=== PATIENT | female | born 1950 | race Caucasian/White ===

== ENCOUNTER → 2018-09-05 | Outpatient (CLI) | payer MEDICARE ==
[~2018-09-05] MED LIST: AMLO5 PO; ATOR10 PO; CAL-CITRATE PL1 EACH PO; ERGO400 PO; FISH OIL 1,001000 MG PO; HYDSUL200 PO; Hair, Skin & N1 EACH PO; IRON PO; LEVSOD50 PO; LEVSOD75 PO; LOSARTAN POTAS100 MG PO; PANT40 PO; Synthroid137 MCG PO
[2018-09-05 17:51] LABS: BASOPHILS ABSOLUTE AUTO 0.05 K/mm3 (0.00-0.23); BASOPHILS PERCENT AUTO 0 % (0-2); EOSINOPHILS PERCENT AUTO 0 % (0-6); Hematocrit 39.9 % (33.0-51.0); Hemoglobin 13.4 g/dL (11.5-16.0); IMMATURE GRAN ABSOLUTE AUTO 0.06 K/mm3 (0.00-0.10); IMMATURE GRAN PERCENT AUTO 0 % (0-1); LYMPHOCYTES ABSOLUTE AUTO 1.06 K/mm3 (0.84-5.20); LYMPHOCYTES PERCENT AUTO 8 % (21-46); MONOCYTES ABSOLUTE AUTO 1.33 K/mm3 (0.16-1.47); MONOCYTES PERCENT AUTO 10 % (4-13); Mean Corpuscular HGB 29.1 pg (26.0-34.0); Mean Corpuscular HGB Conc 33.6 g/dL (31.5-36.5); Mean Corpuscular Volume 87 fL (80-100); Mean Platelet Volume 11.1 fL (9.1-12.4); NEUTROPHILS ABSOLUTE AUTO 10.94 K/mm3 (1.96-9.15); NEUTROPHILS PERCENT AUTO 81 % (41-73); Platelet Count 220 K/mm3 (150-400); RDW Coefficient Variation 14.2 % (11.7-14.2); RDW Standard Deviation 44.8 fL (35.1-46.3); Red Blood Cell Count 4.61 M/mm3 (3.80-5.20); White Blood Cell Count 13.44 K/mm3 (4.00-11.30)
[2018-09-05 18:07] LABS: Alanine Aminotransfer (ALT/SGP 18 U/L (12-78); Albumin, Blood 2.7 g/dL (3.4-5.0); Albumin/Globulin Ratio 0.6 (0.8-1.8); Alk Phos 85 U/L (40-126); Anion Gap 9 mmol/L (6-16); Aspartate Aminotrans (AST/SGOT 15 U/L (12-37); Bilirubin, Total 0.6 mg/dL (0.1-1.0); Blood Urea Nitrogen 9 mg/dL (8-24); Bun/Creatinine Ratio 11.4 (12.0-20.0); CO2, Blood 26 mmol/L (21-32); Calcium, Blood 8.7 mg/dL (8.5-10.1); Chloride, Blood 96 mmol/L (98-108); Creatinine, Blood 0.79 mg/dL (0.40-1.00); Globulin, Blood 4.7 g/dL (2.2-4.0); Glomerular Filtration Rate >60 (60-); Glucose, Blood 144 mg/dL (70-99); Sodium, Blood 131 mmol/L (136-145); Total Protein, Blood 7.4 g/dL (6.4-8.2)
== END | disposition home or self-care (01) ==
LOC: LAB EV 17:43 → LAB SHORT 17:43
PROVIDERS: Physician Assistant
DX: R11.0 Nausea (principal); R73.9 Hyperglycemia, unspecified
CPT/HCPCS: 80053; 83036; 83690; 85025

== ENCOUNTER → 2018-10-20 | Outpatient (CLI) | payer MEDICARE ==
[2018-10-21 09:20] LABS: U Amphetamine Screen Not Detected; U Barbituate Screen Not Detected; U Benzodiazapine Screen Not Detected; U Buprenorphine Screen Not Detected; U Cannabinoids Screen Not Detected; U Cocaine Screen Not Detected; U Methadone Screen Not Detected; U Methamphetamine Screen Not Detected; U Opiates Screen DETECTED; U Oxycodone Screen Not Detected; U Phencyclidine Screen Not Detected; U Propoxyphene Screen Not Detected
== END | disposition home or self-care (01) ==
LOC: LAB 17:44 → LAB SHORT 17:44
PROVIDERS: Family Medicine
DX: G89.29 Other chronic pain (principal); Z79.899 Other long term (current) drug therapy
CPT/HCPCS: G0480

== ENCOUNTER 2019-02-04 09:15 | Day surgery (SDC) | payer MEDICARE ==
[~2019-02-04] VITALS: Ht 172.7 cm; Wt 100.9 kg
== END 2019-02-04 11:38 | disposition home or self-care (01) ==
LOC: ORSCSDS 09:15
PROVIDERS: Internal Medicine Gastroenterology
PROC: 0DBN8ZX Excision of Sigmoid Colon, Via Natural or Artificial Opening Endoscopic, Diagnostic (ICD-10-PCS; principal; 2019-02-04 10:30)
PROC: 0DBP8ZX Excision of Rectum, Via Natural or Artificial Opening Endoscopic, Diagnostic (ICD-10-PCS; principal; 2019-02-04 10:30)
PROC: 0DBM8ZX Excision of Descending Colon, Via Natural or Artificial Opening Endoscopic, Diagnostic (ICD-10-PCS; principal; 2019-02-04 10:30)
DX: Z12.11 Encounter for screening for malignant neoplasm of colon (principal); Z85.038 Personal history of other malignant neoplasm of large intestine; K63.5 Polyp of colon; K62.1 Rectal polyp; K64.8 Other hemorrhoids; K57.30 Diverticulosis of large intestine without perforation or abscess without bleeding; E11.9 Type 2 diabetes mellitus without complications; I10 Essential (primary) hypertension; D64.9 Anemia, unspecified; K21.9 Gastro-esophageal reflux disease without esophagitis; E03.9 Hypothyroidism, unspecified; E66.01 Morbid (severe) obesity due to excess calories; Z68.36 Body mass index [BMI] 36.0-36.9, adult; Z79.899 Other long term (current) drug therapy
CPT/HCPCS: 88305; J2704; J7120

== ENCOUNTER → 2020-02-24 | Outpatient (CLI) | payer MEDICARE ==
[~2020-02-24] MED LIST changes: +HYDACE10B
== END | disposition home or self-care (01) ==
LOC: LAB SHORT 13:07 → LAB EV 13:07
DX: N39.0 Urinary tract infection, site not specified (principal)
CPT/HCPCS: 87086

== ENCOUNTER → 2020-11-21 | Outpatient (CLI) | payer MEDICARE | END | disposition home or self-care (01) | LOC: LAB SHORT 18:55 → LAB 18:55 | DX: N39.0 Urinary tract infection, site not specified (principal) | CPT/HCPCS: 87077; 87086; 87186 ==

== ENCOUNTER 2021-03-16 09:06 | Emergency (ER) | payer MEDICARE ==
[~2021-03-16] VITALS: Ht 167.6 cm; Wt 99.8 kg
[2021-03-16] MEDS ORDERED: IRBESARTAN300 M3 PO (09:15)
[2021-03-16] MEDS ORDERED: OXYC5 PO (10:50)
== END 2021-03-16 10:59 | disposition home or self-care (01) ==
LOC: ER 09:06
DX: S22.32XA Fracture of one rib, left side, initial encounter for closed fracture (principal); S00.83XA Contusion of other part of head, initial encounter; S40.022D Contusion of left upper arm, subsequent encounter; S90.32XD Contusion of left foot, subsequent encounter; W19.XXXA Unspecified fall, initial encounter
CPT/HCPCS: 71101; 99283-25; A9270

== ENCOUNTER 2021-06-29 09:41 | Day surgery (SDC) | payer MEDICARE ==
[~2021-06-29] VITALS: Ht 170.2 cm; Wt 233.8 kg
[~2021-06-29 09:41] MED LIST changes: +IRBESARTAN300 M3 PO; +LEVOTHYROXINE PO; +OXYC5 PO
--- NOTE | 2021-06-29 10:49 | NUR ---
06/29/21 1049 Mallika Yao CALL LIGHT WITHIN REACH. LILLIE SHEPPARD IN ROOM TO ASSIST IN PRE-OP. TETRACAIN EYE DROPS IN LEFT EYE AT 1041 RANCHO AT 1042
== END 2021-06-29 12:05 | disposition home or self-care (01) ==
LOC: ORSCSDS 09:41
PROVIDERS: Ophthalmology
PROC: 08RK3JZ Replacement of Left Lens with Synthetic Substitute, Percutaneous Approach (ICD-10-PCS; principal; 2021-06-29 11:00)
DX: H25.13 Age-related nuclear cataract, bilateral (principal); I10 Essential (primary) hypertension; K21.9 Gastro-esophageal reflux disease without esophagitis; E11.9 Type 2 diabetes mellitus without complications; E66.9 Obesity, unspecified; Z68.36 Body mass index [BMI] 36.0-36.9, adult; Z79.899 Other long term (current) drug therapy
CPT/HCPCS: J2001; J2250; J3010; J3301; J7040; V2632

== ENCOUNTER 2021-07-13 10:32 | Day surgery (SDC) | payer MEDICARE ==
[~2021-07-13] VITALS: Ht 170.2 cm; Wt 103.1 kg
--- NOTE | 2021-07-13 11:23 | NUR ---
[facility] warming gown applied. Patient states colon prep results clear. History, Chart, Medications and Allergies reviewed before start of procedure.Lungs clear T/O to Auscultation. Patient confirms NPO status and agrees with scheduled surgery. Pre-Op teaching done. Pt verbalizes understanding. Patient States Post-Procedure ride home has been arranged.
--- NOTE | 2021-07-13 12:10 | NUR ---
07/13/21 1209 Diana Arevalo History, Chart, Medications and Allergies reviewed before start of procedure. Patient confirms NPO status and agrees with scheduled surgery. 3-LEAD EKG REVIEWED WITH PHYSICIAN PRIOR TO START OF PROCEDURE. MONITOR INTACT WITH CONTINUOUS PULSE OXIMETRY AND INTERMITTENT BP. PATIENT DETERMINED TO BE ASA APPROPRIATE FOR PROPOFOL SEDATION PRIOR TO START OF PROCEDURE BY DR. KARIMI.
--- NOTE | 2021-07-13 13:15 | NUR ---
PT TO STEP. DENIES COMPLAINTS. TOLERATING JUICE.
--- NOTE | 2021-07-13 13:37 | NUR ---
WRITTEN AND VERBAL D/C INSTRUCTIONS GIVNE TO PT WITH STATED UNDERSTANDING,
== END 2021-07-13 13:50 | disposition home or self-care (01) ==
LOC: ORSCMMR 10:32
PROVIDERS: Internal Medicine Gastroenterology
PROC: 0DBN8ZX Excision of Sigmoid Colon, Via Natural or Artificial Opening Endoscopic, Diagnostic (ICD-10-PCS; principal; 2021-07-13 11:30)
PROC: 0DBM8ZX Excision of Descending Colon, Via Natural or Artificial Opening Endoscopic, Diagnostic (ICD-10-PCS; principal; 2021-07-13 11:30)
PROC: 0DBP8ZX Excision of Rectum, Via Natural or Artificial Opening Endoscopic, Diagnostic (ICD-10-PCS; principal; 2021-07-13 11:30)
DX: Z12.11 Encounter for screening for malignant neoplasm of colon (principal); Z85.038 Personal history of other malignant neoplasm of large intestine; Z86.010 Personal history of colon polyps; D12.4 Benign neoplasm of descending colon; K62.1 Rectal polyp; K57.30 Diverticulosis of large intestine without perforation or abscess without bleeding; K64.8 Other hemorrhoids; Z79.899 Other long term (current) drug therapy; I10 Essential (primary) hypertension; K21.9 Gastro-esophageal reflux disease without esophagitis; E11.9 Type 2 diabetes mellitus without complications; E66.9 Obesity, unspecified; Z68.36 Body mass index [BMI] 36.0-36.9, adult; Z85.3 Personal history of malignant neoplasm of breast
CPT/HCPCS: 88305; J2704; J7120

== ENCOUNTER 2021-07-20 07:13 | Day surgery (SDC) | payer MEDICARE ==
[~2021-07-20] VITALS: Ht 170.2 cm; Wt 105.2 kg
[2021-07-20] MEDS ORDERED: Vitamin D1000 UNI1 PO (07:41)
--- NOTE | 2021-07-20 07:51 | NUR ---
07/20/21 0751 OSVALDO HERNANDEZ TETRACAINE DROP INSTILLED AT 0741. PLEDGETT INSERTED AT 0744.
--- NOTE | 2021-07-20 08:42 | NUR ---
07/20/21 0842 Jimbo Cotton PT OKAYED THE USE OF ADHESIVE TAPE AFTER REPORTING ADHESIVE ALLERGY. PT REPORTS ALLERGY IS TO PROLONGED EXPOSURE TO ADHESIVE.
== END 2021-07-20 09:02 | disposition home or self-care (01) ==
LOC: ORSCSDS 07:13
PROVIDERS: Ophthalmology
PROC: 08RJ3JZ Replacement of Right Lens with Synthetic Substitute, Percutaneous Approach (ICD-10-PCS; principal; 2021-07-20 08:30)
DX: H25.11 Age-related nuclear cataract, right eye (principal); I10 Essential (primary) hypertension; E66.9 Obesity, unspecified; Z68.36 Body mass index [BMI] 36.0-36.9, adult; E03.9 Hypothyroidism, unspecified; Z79.899 Other long term (current) drug therapy
CPT/HCPCS: J2001; J2250; J3010; J3301; J7040; V2632

== ENCOUNTER 2021-09-07 07:57 | Day surgery (SDC) | payer MEDICARE ==
[~2021-09-07 07:57] MED LIST changes: +PREG25 PO; +Vitamin D1000 UNI1 PO
--- NOTE | 2021-09-07 09:29 | NUR ---
Linq placed by Dr Rodney CIFUENTES sternal area. Pt tolerated procedure well. Pt and verbalized understanding of written and verbal d/c inst. Pt taken out of the [facility] via w/c.
== END 2021-09-07 22:37 | disposition home or self-care (01) ==
LOC: MHTC 07:57
DX: R55 Syncope and collapse (principal); I10 Essential (primary) hypertension; I47.1 Supraventricular tachycardia; E03.9 Hypothyroidism, unspecified
CPT/HCPCS: 33285; C1764

== ENCOUNTER → 2021-10-04 | Outpatient (CLI) | payer MEDICARE | END | disposition home or self-care (01) | LOC: LAB SHORT 16:32 → LAB 16:32 | DX: N39.0 Urinary tract infection, site not specified (principal) | CPT/HCPCS: 87086 ==

== ENCOUNTER 2023-05-22 11:12 | Day surgery (SDC) | payer MEDICARE ==
[~2023-05-22] VITALS: Ht 167.6 cm; Wt 102.7 kg
[~2023-05-22 11:12] MED LIST changes: +Atropine Sulfate 0.1 MG/ML 10ML SYR ONE; +Glycopyrrolate 0.2 MG/ML 1MLVIAL ONE; +Lactated Ringer's 1,000 ML IV ONE; +Lidocaine 2% 5 ML SDV ONE; +Lidocaine HCl/Pf 1% 5 ML VIAL ONE; +Methylene Blue 1% 100 MG/10 ML VIAL ONE; +Ondansetron HCl 2 MG / ML 2ML Vial ONE; +ePHEDrine Sulfate 50 MG/ML 1ML Injection ONE; +propofoL 50 ML IV ONE
[2023-05-22] MEDS ORDERED: HYDSUL200 (11:52)
[2023-05-22] MEDS ORDERED: Lactated Ringer's 1,000 ML IV ONE ×2 (15:50→16:58)
[2023-05-22] MEDS ORDERED: propofoL 50 ML IV ONE ×2 (16:36→17:09)
[2023-05-22] MEDS ORDERED: Lidocaine HCl 2% Jelly 120MG/6ML SYR (20MG PER ML) ONE (16:39)
--- NOTE | 2023-05-22 17:37 | NUR ---
05/22/23 1737 Fidel Leo 4ML NS USED TO ELEVATE POLYP FOR POLYPECTOMY.
[2023-05-22 18:12] VITALS: BP 141/77
== END 2023-05-22 18:13 | disposition home or self-care (01) ==
LOC: ORSCSDS 11:12
PROVIDERS: Internal Medicine Gastroenterology
PROC: 0DBP8ZX Excision of Rectum, Via Natural or Artificial Opening Endoscopic, Diagnostic (ICD-10-PCS; principal; 2023-05-22 12:30)
PROC: 0DBN8ZX Excision of Sigmoid Colon, Via Natural or Artificial Opening Endoscopic, Diagnostic (ICD-10-PCS; principal; 2023-05-22 12:30)
PROC: 0DB78ZX Excision of Stomach, Pylorus, Via Natural or Artificial Opening Endoscopic, Diagnostic (ICD-10-PCS; principal; 2023-05-22 12:30)
PROC: 0DBL8ZX Excision of Transverse Colon, Via Natural or Artificial Opening Endoscopic, Diagnostic (ICD-10-PCS; principal; 2023-05-22 12:30)
PROC: 0DBM8ZX Excision of Descending Colon, Via Natural or Artificial Opening Endoscopic, Diagnostic (ICD-10-PCS; principal; 2023-05-22 12:30)
DX: K31.A0 Gastric intestinal metaplasia, unspecified (principal); K21.9 Gastro-esophageal reflux disease without esophagitis; Z85.038 Personal history of other malignant neoplasm of large intestine; Z86.010 Personal history of colon polyps; K31.7 Polyp of stomach and duodenum; D12.3 Benign neoplasm of transverse colon; K63.5 Polyp of colon; K62.1 Rectal polyp; Z68.38 Body mass index [BMI] 38.0-38.9, adult; I10 Essential (primary) hypertension; E78.5 Hyperlipidemia, unspecified; E03.9 Hypothyroidism, unspecified; Z79.899 Other long term (current) drug therapy
CPT/HCPCS: 88305; 88342; A9270; J0461; J2001; J2405; J2704; J7120; Q9968

== ENCOUNTER 2024-05-28 12:19 | Day surgery (SDC) | payer MEDICARE ==
[~2024-05-28] VITALS: Ht 167.6 cm; Wt 103.9 kg
[~2024-05-28 12:19] MED LIST changes: -Atropine Sulfate 0.1 MG/ML 10ML SYR ONE; -Glycopyrrolate 0.2 MG/ML 1MLVIAL ONE; +HYDSUL200; -Lidocaine 2% 5 ML SDV ONE; -Lidocaine HCl/Pf 1% 5 ML VIAL ONE; -Methylene Blue 1% 100 MG/10 ML VIAL ONE; -Ondansetron HCl 2 MG / ML 2ML Vial ONE; -ePHEDrine Sulfate 50 MG/ML 1ML Injection ONE
[2024-05-28] MEDS ORDERED: MULVITA (12:50)
[2024-05-28] MEDS ORDERED: ONDANSETRON ODT16 MG (12:50)
[2024-05-28] MEDS ORDERED: Lactated Ringer's 1,000 ML IV ONE (13:40)
[2024-05-28] MEDS ORDERED: propofoL 50 ML IV ONE (14:34)
--- NOTE | 2024-05-28 14:54 | NUR ---
05/28/24 1454 Fidel Leo LATE NOTE: PT C/O 10/29 LEFT SHOULDER PAIN. PT STATED SHE HAD A TORN ROTATOR CUFF. PT STATED IT IS HARD FOR HER TO LAY ON HER LEFT SIDE. AFTER TALKING WITH THE MD, PT AGREED LAYING ON THE LEFT SIDE FOR THE PROCEDURE.
--- NOTE | 2024-05-28 14:56 | NUR ---
05/28/24 1456 Fidel Leo PT TOLERATED SLOWLY REPOSITIONING ON LEFT SIDE, LEFT HIP AND LEFT SHOULDER. UPON WAKING UP, PT WAS TEARFUL AND STATED PAIN IN THE LEFT SHOULDER 11/29. PT STATES SITING UP HELPS RELIEVE PAIN. JACY CAO AND LILLIE CHAUDHARI BOOSTED PT UP IN BED WITH THE DRAW SHEET, AND INCREASED THE HOB, PT STATED IT HELPED RELIEVE THE PAIN.
--- NOTE | 2024-05-28 14:58 | NUR ---
05/28/24 5464 Fidel Leo GAVE REPORT TO LILLIE BELLA. PT WAS TEARFUL, C/O CONTINUED PAIN IN LEFT SHOULDER. PT OFFERED ICE PACK, PT DECLINED STATING SITTING UP IS BETTER AND HELPS MANAGE PAIN. LILLIE BELLA AND LILLIE CHAUDHARI BOOSTED PT UP IN BED AGAIN WITH DRAW SHEET. PT AGAIN OFFERED ICE PACK, PT DECLINED.
[2024-05-28 15:22] VITALS: BP 140/89
== END 2024-05-28 15:24 | disposition home or self-care (01) ==
LOC: ORSCSDS 12:19
PROVIDERS: Internal Medicine Gastroenterology
PROC: 0DBN8ZX Excision of Sigmoid Colon, Via Natural or Artificial Opening Endoscopic, Diagnostic (ICD-10-PCS; principal; 2024-05-28 13:45)
PROC: 0DBM8ZX Excision of Descending Colon, Via Natural or Artificial Opening Endoscopic, Diagnostic (ICD-10-PCS; principal; 2024-05-28 13:45)
DX: Z12.11 Encounter for screening for malignant neoplasm of colon (principal); D12.4 Benign neoplasm of descending colon; D12.5 Benign neoplasm of sigmoid colon; D17.79 Benign lipomatous neoplasm of other sites; K57.30 Diverticulosis of large intestine without perforation or abscess without bleeding; Z85.038 Personal history of other malignant neoplasm of large intestine; Z86.0101 Personal history of adenomatous and serrated colon polyps; Z79.899 Other long term (current) drug therapy
CPT/HCPCS: 88305; J2704; J7120